=== PATIENT | female | born 2000 | race Caucasian/White ===

== ENCOUNTER 2019-04-10 18:57 | Emergency (ER) | payer OTHER ==
[~2019-04-10] VITALS: Ht 177.8 cm; Wt 176.9 kg
[2019-04-10 19:14] VITALS: BP 105/59
--- NOTE | 2019-04-10 19:16 | NUR ---
TO LOBBY A/W BED AMBULATORY
--- NOTE | 2019-04-10 20:18 | NUR ---
PT AMBULATED TO BED 12.
--- NOTE | 2019-04-10 21:06 | NUR ---
18 Y/O F PRESENTED TO ED WITH C/O INTERMINTENT DIZZINESS X1 MONTH. C/O HEAD PRESSURE, CONSTANT 2/10 PAIN. PER PT " ITS LIKE SHOCKS TO THE BACK OF MY HEAD AND WHEN I MOVE I FEEL LIKE THE ROOM IS SPINNING." DENIES VISUAL CHANGES. ABLE TO SPEAK FULL SENTENCES. MOTHER AT BEDSIDE. ERMD AWARE OF PT STATUS. WILL CONTINUE TO MONITOR.
[2019-04-10] MEDS ORDERED: MECLIZINE 25 MG TAB PO ONE (21:20)
[2019-04-10 21:59] LABS: BASOPHILS % (AUTO) 0.5 % (0.0-2.0); EOSINOPHILS # (AUTO) 0.1 K/uL (0-0.4); EOSINOPHILS % (AUTO) 1.5 % (0.0-4.0); HEMOGLOBIN 12.9 g/dL (12.0-16.0); LYMPHOCYTES # (AUTO) 2.8 K/uL (2.5-16.5); LYMPHOCYTES % (AUTO) 35.7 % (20.5-51.1); MEAN CORPUSCULAR HEMOGLOBIN 26 pg (27-31); MEAN CORPUSCULAR HGB CONC 32 g/dL (33-37); MEAN CORPUSCULAR VOLUME 78.8 fL (80-94); MONOCYTES # (AUTO) 0.2 K/uL (0.8-1.0); MONOCYTES % (AUTO) 2.9 % (1.7-9.3); NEUTROPHILS # (AUTO) 4.6 K/uL (1.8-7.7); NEUTROPHILS % (AUTO) 59.4 % (42.2-75.2); PLATELET COUNT (AUTO) 187 K/uL (140-450); RED BLOOD CELL COUNT(AUTO) 5.07 MIL/uL (4.20-5.40); RED CELL DISTRIBUTION WIDTH 16.7 % (11.6-13.7); WHITE BLOOD COUNT (AUTO) 7.7 K/uL (4.5-11.0)
[2019-04-10 22:49] LABS: ALBUMIN 3.5 g/dL (3.4-5.0); ANION GAP 11.6 (8-16); CARBON DIOXIDE 28.1 mmol/L (21-32); CREATININE 0.8 mg/dL (0.6-1.3); POTASSIUM 3.7 mmol/L (3.5-5.1); THYROID STIMULATING HORMONE 1.04 uIU/mL (0.34-3.74); TOTAL BILIRUBIN 0.2 mg/dL (0.0-1.0)
[2019-04-10] MEDS ORDERED: KETOROLAC 60 MG/2 ML VIAL IM ONE (22:55)
--- NOTE | 2019-04-10 23:00 | NUR ---
PT TEARFUL. PT STATED "STILL FEELING PRESSURE IN THE BACK OF HER HEAD."
[2019-04-10 23:10] VITALS: BP 118/88
--- NOTE | 2019-04-10 23:49 | NUR ---
Patient discharged with v/s stable. Written and verbal after care instructions given and explained. Patient alert, oriented and verbalized understanding of instructions. Ambulatory with steady gait. All questions addressed prior to discharge. ID band removed. Patient advised to follow up with PMD. Rx of meclizine and motrin given. Patient educated on indication of medication including possible reaction and side effects. Opportunity to ask questions provided and answered.
== END 2019-04-10 23:49 | disposition home or self-care (01) ==
LOC: MED 18:57
DX: R42 Dizziness and giddiness (principal); R51 Headache; F41.9 Anxiety disorder, unspecified
CPT/HCPCS: 36415; 80053; 84443; 85025; 96372; 99283; J1885; J8597